=== PATIENT | male | born 1960 ===

== ENCOUNTER 2018-09-28 18:59 | Observation (INO) | payer MEDICAID, OTHER ==
[2018-09-28 18:59] VITALS: BMI 25.8
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
[2018-09-28 20:59] LABS: BASO % 0.6 % (0.0-2.0); EOS # 0.2 K/uL (0.0-0.7); EOS % 3.6 % (0.0-4.0); HEMOGLOBIN 14.4 g/dL (12.0-18.0); LYMPH # 2.4 K/uL (1.0-4.3); LYMPH % 43.4 % (20.0-40.0); MEAN CELL VOLUME 89.7 fL (80.0-94.0); MEAN CORPUSCULAR HEMOGLOBIN 30.4 pg (27.0-31.0); MEAN CORPUSCULAR HGB CONC 33.9 g/dL (33.0-37.0); MEAN PLATELET VOLUME 6.7 fL (7.2-11.7); MONO # 0.6 K/uL (0.0-0.8); NEUT # 2.4 K/uL (1.8-7.0); NEUT % 42.4 % (50.0-75.0); RBC 4.74 Mil/uL (4.40-5.90); RED CELL DISTRIBUTION WIDTH 13.9 % (11.5-14.5); WHITE BLOOD COUNT 5.6 K/uL (4.8-10.8)
[2018-09-28 21:21] LABS: BLOOD UREA NITROGEN 16 mg/dL (9-20); CALCIUM 9.5 mg/dl (8.6-10.4); GFR NON-AFRICAN AMERICAN > 60
[2018-09-28] MEDS ORDERED: ceFAZolin 1 gm in NS 1 GM/100 ML BAG IVPB ONE (21:45)
[2018-09-28] MEDS ORDERED: Iohexol 350mg/ml 100 ML ONE (22:14)
[2018-09-29] MEDS ORDERED: Sodium Chloride 0.9% 1,000 ML IV ONE (00:29)
--- NOTE | 2018-09-29 04:32 | CP.PCM.CON ---
<Gaudencio Park - Last Filed: 09/29/18 08:31> History of Present Illness - History of Present Illness History of Present Illness: Surgery Consult Note- Dr. Hernandez Reason for Consult: R Neck abscess vs RIJ Aneurysm 57M w/ no significant pmhx presents to [facility] for increased size of neck abscess. 1 week ago patient was seen by PMD and was given course of abx however did not improve. Denies nausea, vomiting fevers chills. During ED work up, patient was also found to have RIJ ? aneurysm. Patient denies trauma to the neck or instrumentation. Pain and discomfort localized to the superficial abscess. PMH: denies PSH: cholecystectomy, incisional hernia repair ALL: NKDA SocialHx: denies tobacco, etoh, IV drug use, recreational drug use FH: non-contributory Review of Systems - Review of Systems All systems: reviewed and no additional remarkable complaints except - Constitutional Constitutional: As Per HPI Past Patient History - Past Medical History & Family History Past Medical History?: No - Past Social History Smoking Status: Never Smoked - CARDIAC Hx Pacemaker: No - NEUROLOGICAL Hx Paralysis: No - HEMATOLOGICAL/ONCOLOGICAL Hx Blood Transfusions: (UNK) Hx Blood Transfusion Reaction: (UNK) - MUSCULOSKELETAL/RHEUMATOLOGICAL Hx Musculoskeletal Disorders: No - PSYCHIATRIC Hx Substance Use: No - SURGICAL HISTORY Hx Surgeries: No - ANESTHESIA Hx Anesthesia Reactions: No Hx Malignant Hyperthermia: No Meds Allergies/Adverse Reactions: Allergies Allergy/AdvReac Type Severity Reaction Status Date / Time No Known Allergies Allergy Verified 10/02/18 18:57 - Medications Medications: Current Medications Sodium Chloride (Sodium Chloride 0.9%) 1,000 mls @ 100 mls/hr IV .Q10H ONE Stop: 09/29/18 10:28 Last Admin: 09/29/18 00:57 Dose: 100 mls/hr Pneumococcal Polyvalent Vaccine (Pneumovax 23 Vaccine) 0.5 ml IM .ONCE ONE Stop: 09/30/18 10:01 Physical Exam - Constitutional Appears: Non-toxic, No Acute Distress - Head Exam Head Exam: ATRAUMATIC - Eye Exam Eye Exam: EOMI. absent: Scleral icterus - ENT Exam ENT Exam: Mucous Membranes Moist Additional comments: Right superficial fluctuant abscess measuring approx 3x3cm. - Respiratory Exam Respiratory Exam: NORMAL BREATHING PATTERN. absent: Accessory Muscle Use, Respiratory Distress - Cardiovascular Exam Cardiovascular Exam: REGULAR RHYTHM. absent: Bradycardia, Tachycardia - GI/Abdominal Exam GI & Abdominal Exam: Soft. absent: Distended, Firm, Guarding, Tenderness Additional comments: incisions well healed - Neurological Exam Neurological exam: Alert, Oriented x3 - Psychiatric Exam Psychiatric exam: Normal Affect - Skin Skin Exam: Intact, Warm Results - Vital Signs Recent Vital Signs: Last Vital Signs Temp 98.3 F 09/29/18 03:30 Pulse 71 09/29/18 03:30 Resp 20 09/29/18 03:30 BP 123/77 09/29/18 03:30 Pulse Ox 97 09/29/18 02:51 - Labs Result Diagrams: 09/28/18 20:48 09/28/18 20:48 Labs: Laboratory Results - last 24 hr 09/28/18 09/28/18 20:48 20:48 WBC 5.6 RBC 4.74 Hgb 14.4 Hct 42.5 MCV 89.7 MCH 30.4 MCHC 33.9 RDW 13.9 Plt Count 257 MPV 6.7 L Neut % (Auto) 42.4 L Lymph % (Auto) 43.4 H [place] % (Auto) 10.0 Eos % (Auto) 3.6 Baso % (Auto) 0.6 Neut # (Auto) 2.4 Lymph # (Auto) 2.4 [place] # (Auto) 0.6 Eos # (Auto) 0.2 Baso # (Auto) 0.0 Sodium 137 Potassium 3.9 Chloride 103 Carbon Dioxide 26 Anion Gap 11 BUN 16 Creatinine 0.7 L Est GFR ( Amer) > 60 Est GFR (Non-Af Amer) > 60 Random Glucose 123 H Calcium 9.5 Assessment & Plan - Assessment and Plan (Free Text) Assessment: 57M w/ Right neck abscess, incidental finding of RIJ aneurysm Plan: - US in AM - Keep NPO - IVF - further management pending results - will d/w Dr. Hernandez surgical attending [facility] PGY2 <Jaime Hernandez - Last Filed: 10/04/18 18:42> Results - Vital Signs Recent Vital Signs: Last Vital Signs Temp 98.1 F 09/30/18 15:00 Pulse 74 09/30/18 15:00 Resp 20 09/30/18 15:00 BP 151/94 H 09/30/18 15:00 Pulse Ox 98 09/30/18 20:00 - Labs Result Diagrams: 09/30/18 07:29 09/30/18 07:29 Attending/Attestation - Attestation I have personally seen and examined this patient.: Yes I have fully participated in the care of the patient.: Yes I have reviewed all pertinent clinical information: Yes Notes (Text): Pt was seen and examined at bedside Agree with above note and assessment Pt with right neck abscess Neck : 3x3 cm abscess with erythema present Labs and radiology reviewed Ass: Neck abscess with Cellulites Plan : OR for I & D tomorrow NPO, IVF c.w current mx IV antibiotics Plan d.w pt in detail Risk and benefit explained in detail.
--- NOTE | 2018-09-29 12:35 | CT ---
Date of service: 09/28/2018 PROCEDURE: CT NECK WITH CONTRAST HISTORY: Right-sided mass/abscess/cyst? COMPARISON: None available. TECHNIQUE: CT of the neck with intravenous contrast. Coronal and sagittal reformats generated. Intravenous contrast dose: Radiation dose: Total exam DLP = 474.98 mGy-cm. This CT exam was performed using one or more of the following dose reduction techniques: Automated exposure control, adjustment of the mA and/or kV according to patient size, and/or use of iterative reconstruction technique. FINDINGS: NASOPHARYNX: Unremarkable. SUPRAHYOID NECK: Unremarkable oropharynx, oral cavity, parapharyngeal space and retropharyngeal space. INFRAHYOID NECK: Unremarkable larynx, hypopharynx, and supraglottic space.. There is minor medial position of the right true vocal cord of the MASS: None. GLANDS: There are a few small periparotid and intra parotid lymph nodes felt be present. Submandibular glands unremarkable.. Normal size thyroid gland; small elliptical shaped approximately 7.5 x 3.7 mm low-attenuation lesion left lobe thyroid gland. Follow-up thyroid ultrasound recommended. LYMPH NODES: There are multiple small bilateral cervical lymph nodes none of which appear pathologically enlarged. CERVICAL SPINE: Mild multilevel degenerative spondylosis of the cervical spine.. Minor localized calcification of the ligamentum nuchae a lower cervical region. VASCULAR STRUCTURES: The there is fusiform dilatation of the mid and lower portion of the internal jugular vein. Measuring approximately 3.1 x 2.5 cm in greatest diameter measured on axial image number 67 and extending approximately 5.6 cm in CC dimension. Some very minor soft plaque seen distal common carotid arteries and carotid bifurcations. No evidence of dissection, occlusion or significant stenosis. Asymmetry of the vertebral arteries right-sided which is much larger in caliber/more dominant than the left side. Note made of slight ectasia of the supraclinoid carotid arteries and basilar artery.. OTHER FINDINGS: None. IMPRESSION: Fusiform dilatation of the right internal jugular vein with largest maximal diameter measured at approximately 3.1 x 2.5 cm. Small low-attenuation lesion left lobe thyroid gland for which thyroid ultrasound follow-up recommended. No large cervical masses or collections no significant cervical adenopathy. Slight medial position right true vocal cord nonspecific. Clinical correlation recommended.
--- NOTE | 2018-09-29 14:23 | CP.PCM.PN ---
Subjective - Date & Time of Evaluation Date of Evaluation: 09/29/18 Time of Evaluation: 08:00 - Subjective Subjective: abscess is unrelated to incidentally found right IJV aneurysm measring over 3cm in diameter first issue is controlling abscess then rx of aneurysm can be discusses DR Dulce Cedeno Objective - Vital Signs/Intake and Output Vital Signs (last 24 hours): Temp Pulse Resp BP Pulse Ox 98.2 F 60 20 114/72 99 09/29/18 07:00 09/29/18 07:00 09/29/18 07:00 09/29/18 07:00 09/29/18 07:00 Intake and Output: 09/29/18 09/29/18 06:59 18:59 Intake Total 300 Balance 300 - Medications Medications: Current Medications Pneumococcal Polyvalent Vaccine (Pneumovax 23 Vaccine) 0.5 ml IM .ONCE ONE Stop: 09/30/18 10:01 - Labs Labs: 09/28/18 20:48 09/28/18 20:48
[2018-09-29] MEDS: Clindamycin 300 MG in Sodium Chloride 0.9% 50 ML IVPB SCH ×2 (17:22→22:10)
[2018-09-29] MEDS: Lactated Ringer's 1,000 ML IV SCH (17:24)
--- NOTE | 2018-09-29 17:59 | RAD ---
Date of service: 09/29/2018 HISTORY: pre-op COMPARISON: Comparison made with prior chest radiograph and CTA chest both dated 07/04/2016 TECHNIQUE: 1 view obtained. FINDINGS: LUNGS: Minor chronic linear atelectasis and or scarring left lower lobe. PLEURA: No significant pleural effusion identified, no pneumothorax apparent. CARDIOVASCULAR: No significant aortic atherosclerotic calcification present. Heart is enlarged.. No pulmonary vascular congestion. OSSEOUS STRUCTURES: No significant abnormalities. VISUALIZED UPPER ABDOMEN: Normal. OTHER FINDINGS: None. IMPRESSION: Minor chronic linear atelectasis and or scarring left lung base.
--- NOTE | 2018-09-29 18:34 | CP.PCM.HP ---
History of Present Illness - History of Present Illness History of Present Illness: Admitted with no significant past medical history with right-sided abscess on the neck with no other issues patient eventually got hospitalized Ultrasound revealed jugular vein distention Patient's to go for IND Discussed with the son and Present on Admission - Present on Admission Any Indicators Present on Admission: No Past Patient History - Past Medical History & Family History Past Medical History?: No - Past Social History Smoking Status: Never Smoked - CARDIAC Hx Pacemaker: No - NEUROLOGICAL Hx Paralysis: No - HEMATOLOGICAL/ONCOLOGICAL Hx Blood Transfusions: (UNK) Hx Blood Transfusion Reaction: (UNK) - MUSCULOSKELETAL/RHEUMATOLOGICAL Hx Musculoskeletal Disorders: No - PSYCHIATRIC Hx Substance Use: No - SURGICAL HISTORY Hx Surgeries: No - ANESTHESIA Hx Anesthesia Reactions: No Hx Malignant Hyperthermia: No Meds Home Medications: Home Medication List Medication Instructions Recorded Confirmed Type Amoxicillin/Clavulanate [Augmentin 1 tab PO BID #20 tab 09/30/18 Rx 875 MG-125 MG] Saccharomyces Boulardi [Florastor] 250 mg PO BID #20 cap 09/30/18 Rx oxyCODONE/Acetaminophen [Percocet 1 ea PO Q6H PRN #20 tab 09/30/18 Rx 5/325 mg Tab] Allergies/Adverse Reactions: Allergies Allergy/AdvReac Type Severity Reaction Status Date / Time No Known Allergies Allergy Verified 10/02/18 18:57 Physical Exam - Constitutional Appears: Well - Head Exam Head Exam: ATRAUMATIC, NORMAL INSPECTION, NORMOCEPHALIC - Eye Exam Eye Exam: EOMI, Normal appearance, PERRL Pupil Exam: NORMAL ACCOMODATION, PERRL - ENT Exam ENT Exam: Mucous Membranes Moist, Normal Exam - Neck Exam Neck exam: Positive for: Normal Inspection - Respiratory Exam Respiratory Exam: Decreased Breath Sounds - Cardiovascular Exam Cardiovascular Exam: REGULAR RHYTHM, +S1, +S2 - GI/Abdominal Exam GI & Abdominal Exam: Diminished Bowel Sounds, Soft - Rectal Exam Rectal Exam: Deferred - Neurological Exam Neurological exam: Oriented x3 Results - Vital Signs Recent Vital Signs: Last Vital Signs Temp 97.8 F 09/29/18 15:30 Pulse 54 L 09/29/18 15:30 Resp 20 09/29/18 15:30 BP 148/89 09/29/18 15:30 Pulse Ox 96 09/29/18 15:30 - Labs Result Diagrams: 09/30/18 07:29 09/30/18 07:29 Labs: Laboratory Results - last 24 hr 09/28/18 09/28/18 20:48 20:48 WBC 5.6 RBC 4.74 Hgb 14.4 Hct 42.5 MCV 89.7 MCH 30.4 MCHC 33.9 RDW 13.9 Plt Count 257 MPV 6.7 L Neut % (Auto) 42.4 L Lymph % (Auto) 43.4 H [place] % (Auto) 10.0 Eos % (Auto) 3.6 Baso % (Auto) 0.6 Neut # (Auto) 2.4 Lymph # (Auto) 2.4 [place] # (Auto) 0.6 Eos # (Auto) 0.2 Baso # (Auto) 0.0 Sodium 137 Potassium 3.9 Chloride 103 Carbon Dioxide 26 Anion Gap 11 BUN 16 Creatinine 0.7 L Est GFR ( Amer) > 60 Est GFR (Non-Af Amer) > 60 Random Glucose 123 H Calcium 9.5 Assessment & Plan - Assessment and Plan (Free Text) Plan: i and d surg ocnsult iv antibitoc septic work up other as ordered
--- NOTE | 2018-09-30 02:51 | CON ---
DATE: 09/29/2018 HISTORY OF PRESENT ILLNESS: The patient is a 57-year-old male, diabetic, admitted to the hospital with an abscess in the neck imaging was done and it showed that the patient has a large over 3 cm right internal jugular vein aneurysm. The patient denies any history of instrumentation of his jugular vein, history of any catheters or anything else placed in this location. FAMILY HISTORY: Unremarkable except for a family history of diabetes. PHYSICAL EXAMINATION: Salient for the absence of any gross abnormality that I can easily state on my examination except for an abscess in the neck, anterior to the sternocleidomastoid muscle. IMPRESSION: My impression is that this patient has an abscess, which needs to be treated in his neck with antibiotics and may require drainage. Based on the imaging studies, it is anterior to sternocleidomastoid muscle, and the sternocleidomastoid muscle separates this from jugular vein aneurysm. RECOMMENDATION: My recommendation is that this should be monitored and give consideration for therapy after the patient recovers from the treatment of infection. Sidney Cedeno Jr., MD
[2018-09-30] MEDS: Lactated Ringer's 1,000 ML IV SCH ×3 (03:00→15:00)
[2018-09-30] MEDS: Clindamycin 300 MG in Sodium Chloride 0.9% 50 ML IVPB SCH ×3 (04:34→16:59)
[2018-09-30 07:36] LABS: HEMOGLOBIN 13.4 g/dL (12.0-18.0); MEAN CELL VOLUME 91.2 fL (80.0-94.0); MEAN CORPUSCULAR HEMOGLOBIN 30.9 pg (27.0-31.0); MEAN CORPUSCULAR HGB CONC 33.9 g/dL (33.0-37.0); MEAN PLATELET VOLUME 6.7 fL (7.2-11.7); RBC 4.34 Mil/uL (4.40-5.90); RED CELL DISTRIBUTION WIDTH 13.8 % (11.5-14.5)
[2018-09-30 08:04] LABS: ALB/GLOB RATIO 1.6 (1.0-2.1); ALBUMIN 3.8 g/dL (3.5-5.0); ALT/SGPT 20 U/L (21-72); AST/SGOT 26 U/L (17-59); BLOOD UREA NITROGEN 11 mg/dL (9-20); CALCIUM 9.2 mg/dl (8.6-10.4); GFR NON-AFRICAN AMERICAN > 60
[2018-09-30 08:29] LABS: INR 1.1; PROTHROMBIN TIME 12.2 SECONDS (9.7-12.2)
--- NOTE | 2018-09-30 08:33 | US ---
Limited right neck soft tissue ultrasound HISTORY: Right neck abscess. COMPARISON: None available. Technique: Real-time sonography was performed through the soft tissues of the right neck. FINDINGS: Within the subcutaneous soft tissues of the right mid neck, there is a complex mixed echogenic collection demonstrating peripheral increased echogenicity with central low echogenicity. Internal echogenic debris noted. This measures approximately 2.5 x 1.0 x 2.9 centimeters. This is concerning for abscess and or prominent phlegmon collection. Impression: Within the subcutaneous soft tissues of the right mid neck, there is a complex ovoid collection measuring 2.5 x 1.0 x 2.9 centimeters demonstrating peripheral increased echogenicity with central low echogenicity as well as internal echogenic debris. This would be concerning for possible abscess and or phlegmon collection. Clinical correlation.
[2018-09-30] MEDS ORDERED: Pneumococcal 23-Valent Vaccine IM ONE ×2 (10:00→15:45)
[2018-09-30] MEDS ORDERED: Clindamycin 600mg/50ml NS 600 MG/50 ML BAG IVPB ONE (12:36)
[2018-09-30] MEDS ORDERED: Bupivacaine 0.25% 20 ML INJ IJ ONE (12:37)
[2018-09-30] MEDS ORDERED: Lidocaine/Epinephrine 1% 1:100000 10 ML IJ ONE (12:37)
[2018-09-30] MEDS ORDERED: Midazolam 2 MG/2 ML VIAL ONE (12:57)
--- NOTE | 2018-09-30 13:02 | PCM.SURG1 ---
Surgeon's Initial Post Op Note - Surgeon's Notes Surgeon: Dr. Hernandez Radiologic Therapist: Bill PGY2 Type of Anesthesia: IV Sedation, Local Anesthesia Administered By: Dr. Bruce Pre-Operative Diagnosis: Right sided neck abscess Operative Findings: Right sided neck abscess Post-Operative Diagnosis: Right sided neck abscess Operation Performed: Incision, drainage, and debridement of Right sided neck abscess Specimen/Specimens Removed: Wound culture, skin Estimated Blood Loss: EBL {In ML}: 10 Blood Products Given: N/A Drains Used: No Drains Post-Op Condition: Good Date of Surgery/Procedure: 09/30/18 Time of Surgery/Procedure: 13:02
[2018-09-30] MEDS ORDERED: oxyCODONE 5 mg Immediate Release Tab PO PRN (13:03)
[2018-09-30] MEDS ORDERED: HYDROmorphone 0.5 mg/0.5 ml ISec IVP PRN (13:15)
[2018-09-30 14:57] VITALS: TEMP 98.1
[2018-09-30 15:44] VITALS: BP 151/94; PULSE 74; RESP 20
--- NOTE | 2018-09-30 17:33 | CP.PCM.PN ---
Subjective - Date & Time of Evaluation Date of Evaluation: 09/30/18 Time of Evaluation: 17:39 - Subjective Subjective: alert and orientedx3, denies acute pain or distress. Objective - Vital Signs/Intake and Output Vital Signs (last 24 hours): Temp Pulse Resp BP Pulse Ox 98.1 F 74 20 151/94 H 96 09/30/18 15:00 09/30/18 15:00 09/30/18 15:00 09/30/18 15:00 09/30/18 15:00 Intake and Output: 09/30/18 09/30/18 06:59 18:59 Intake Total 1900 850 Balance 1900 850 - Medications Medications: Current Medications Acetaminophen (Tylenol 325mg Tab) 650 mg PO Q6 PRN PRN Reason: Pain, Mild (1-3) Clindamycin Phosphate 300 mg/ (Sodium Chloride) 52 mls @ 100 mls/hr IVPB Q6H CELSO; Protocol Last Admin: 09/30/18 16:59 Dose: 100 mls/hr Lactated Ringer's (Lactated Ringer's) 1,000 mls @ 100 mls/hr IV .Q10H CELSO Last Admin: 09/30/18 15:00 Dose: Not Given Oxycodone HCl (Oxycodone Immediate Release Tab) 5 mg PO Q6 PRN PRN Reason: Pain, moderate (4-7) - Labs Labs: 09/30/18 07:29 09/30/18 07:29 PT 12.2 SECONDS (9.7-12.2) 09/30/18 07:29 INR 1.1 09/30/18 07:29 APTT 31 SECONDS (21-34) 09/30/18 07:29 Assessment and Plan - Assessment and Plan (Free Text) Assessment: 57 YEAR OLD MALE ADMITTED WITH abcess on the neck, s/p incision and drainage done today. Seen and examined with DR Satish Muniz, alert and orientedx3, denies acute pain or distress. Cleared by DR Arechiga for discharge home today on oral antibiotics. Advised to follow up in the office this week. Also to follow up [facility] as advised.
[2018-09-30 21:20] VITALS: O2SAT 98
--- NOTE | 2018-10-01 03:57 | OP ---
PROCEDURE DATE: 09/30/2018 PREOPERATIVE DIAGNOSES: 1. Right-sided neck abscess. 2. Neck cellulitis. POSTOPERATIVE DIAGNOSIS: Right-sided neck abscess. PROCEDURES DONE: 1. Incision and drainage of right neck abscess. 2. Excisional debridement of the neck abscess wound and cavity. SURGEON: Jaime Hernandez MD ENERGY CONSERVATION SPECIALIST: Og Khan DO, PGY-2 resident ANESTHESIA: Local anesthesia plus sedation. ESTIMATED BLOOD LOSS: Around 10 mL. DRAINS: None. PATHOLOGY: The pus was sent for the culture and sensitivity, and debrided tissue was also sent for the culture and sensitivity. COMPLICATIONS: None. INTRAOPERATIVE FINDINGS: The patient had approximately 2 x 2 cm abscess cavity of right side of neck, and it was superficial to platysma. The necrotic tissue in the wound cavity was debrided. DESCRIPTION OF PROCEDURE: On intraoperative steps, this is a 57-year-old male who was diagnosed with right neck abscess and cellulitis. The patient was consented for incision and drainage. After a course of antibiotic, the patient was brought to the OR, placed supine on the operating table. After induction of the anesthesia, the neck was prepped and draped in the usual sterile fashion. Local anesthesia was injected. A transverse incision was made. The abscess cavity was entered, and the pus was drained. The pus was sent for the culture and sensitivity. Now, the wound edges were debrided. Debridement was done deep up to the underlying fascia as well as the muscles. The cavity was irrigated, hemostasis was achieved, and it was packed with iodoform packing, and dry sterile dressing was applied. The patient tolerated the procedure well. Count of instrument and gauze was correct. There were no apparent complications. The patient was reversed from sedation and sent to the postanesthesia care unit in stable condition. Jaime Hernandez MD
--- NOTE | 2018-10-02 18:52 | CARD ---
APPROVED REPORT Date of service: 09/29/2018 EKG Measurement Heart [id number] <Conclusion> Normal sinus rhythm Possible Left atrial enlargement Inferior infarct, age undetermined Abnormal ECG
== END 2018-09-30 18:23 | disposition home or self-care (01) ==
LOC: C.ER 18:59 → C.9E 09-29 00:23 → C.3T 09-29 00:44
PROVIDERS: ADMIT Internal Medicine Nephrology; ATTEND Internal Medicine Nephrology
DX: L02.11 Cutaneous abscess of neck (principal); L03.221 Cellulitis of neck; I86.8 Varicose veins of other specified sites; E11.9 Type 2 diabetes mellitus without complications; Z83.3 Family history of diabetes mellitus
CPT/HCPCS: 10060; 11043; 36415; 70491; 71045; 76536; 80048; 80053; 83735; 84100; 85025; 85027; 85610; 85730; 86850; 86900; 87070; 87181; 93005; 96365; 96366; 96375; 99284; G0378; J0690; J2250; J3010; J7030; J7120; Q9967

== ENCOUNTER 2018-10-02 18:48 | Emergency (ER) | payer MEDICAID, OTHER ==
[2018-10-02 18:48] VITALS: BMI 25.8
[2018-10-02 19:02] VITALS: BP 145/100; PULSE 75; RESP 18; TEMP 98.3; O2SAT 96
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
== END 2018-10-02 19:40 | disposition home or self-care (01) ==
LOC: C.ER 18:48
DX: Z51.89 Encounter for other specified aftercare (principal); L02.11 Cutaneous abscess of neck